=== PATIENT | female | born 1940 | race Caucasian/White ===

== ENCOUNTER 2023-08-12 19:46 | Inpatient (IN) | payer OTHER ==
[~2023-08-12] VITALS: Ht 162.6 cm; Wt 65.8 kg
[2023-08-12] MEDS ORDERED: LEVOFLOXACIN 500 MG/D5W PREMIX 100 ML IV ONE (20:40)
[2023-08-12] MEDS ORDERED: ALBUTEROL 0.083% 2.5 MG/3 ML NEBU INH ONE (20:40)
[2023-08-12] MEDS ORDERED: IPRATROPIUM 0.02% 0.5 MG/2.5 ML NEBU INH ONE (20:40)
[2023-08-12 20:51] VITALS: BP 122/58; PULSE 79; RESP 21; TEMP 97.7; O2SAT 95
[2023-08-12 21:20] VITALS: PULSE 100; RESP 24; RESP 30; O2SAT 99
[2023-08-12 21:22] VITALS: O2SAT 94
[2023-08-12 22:24] LABS: BASOPHILS # (AUTO) 0.1 K/uL (0.00-0.22); BASOPHILS % (AUTO) 0.6 % (0.0-2.0); EOSINOPHILS # (AUTO) 0.1 K/uL (0-0.4); EOSINOPHILS % (AUTO) 0.5 % (0.0-4.0); HEMATOCRIT 35.2 % (36-48); HEMOGLOBIN 11.4 g/dL (12.0-16.0); LYMPHOCYTES # (AUTO) 2.3 K/uL (2.5-16.5); LYMPHOCYTES % (AUTO) 10.5 % (20.5-51.1); MEAN CORPUSCULAR HEMOGLOBIN 30 pg (27-31); MEAN CORPUSCULAR HGB CONC 32 g/dL (33-37); MEAN CORPUSCULAR VOLUME 92.3 fL (80-94); MONOCYTES # (AUTO) 1.6 K/uL (0.8-1.0); MONOCYTES % (AUTO) 7.1 % (1.7-9.3); NEUTROPHILS # (AUTO) 18.1 K/uL (1.8-7.7); NEUTROPHILS % (AUTO) 81.3 % (42.2-75.2); PLATELET COUNT (AUTO) 333 K/uL (140-450); RED BLOOD CELL COUNT(AUTO) 3.82 MIL/uL (4.20-5.40); RED CELL DISTRIBUTION WIDTH 13.7 % (11.6-13.7); WHITE BLOOD COUNT (AUTO) 22.2 K/uL (4.8-10.8)
[2023-08-12 22:37] LABS: ANION GAP 11.5 (8-16); CALCIUM 9.1 mg/dL (8.5-10.1); CHLORIDE 102 mmol/L (98-107); CREATININE 0.7 mg/dL (0.6-1.3); GLUCOSE 113 mg/dL (74-106); POTASSIUM 3.5 mmol/L (3.5-5.1); SODIUM SERUM 141 mmol/L (136-145); UREA NITROGEN, BLOOD 20 mg/dL (7-18)
[2023-08-12 22:38] LABS: INR 1.11 (0.8-1.2); PARTIAL THROMBOPLASTIN TIME 27.8 secs (22-35.6); PROTHROMBIN TIME 11.6 secs (10.8-13.4)
[2023-08-12 22:44] LABS: ALANINE AMINOTRANSFERASE 18 U/L (12-78); ALBUMIN 2.4 g/dL (3.4-5.0); ALKALINE PHOSPHATASE 81 U/L (50-136); ASPARTATE AMINOTRANSFERASE 17 U/L (15-37); BILIRUBIN,DIRECT 0.1 mg/dL (0.0-0.3); TOTAL BILIRUBIN 0.5 mg/dL (0.0-1.0); TOTAL PROTEIN, SERUM 7.2 g/dL (6.4-8.2)
[2023-08-12 22:45] LABS: APPEARANCE,URINE CLEAR (CLEAR); BILIRUBIN,URINE NEGATIVE (NEGATIVE); BLOOD, URINE NEGATIVE (NEGATIVE); COLOR,URINE YELLOW (YELLOW); LEUKOCYTE ESTERASE ,URINE NEGATIVE (NEGATIVE); NITRITE, URINE NEGATIVE (NEGATIVE); PROTEIN,URINE 1+ (NEGATIVE); UGLUCOSE NEGATIVE (NEGATIVE); UROBILINOGEN,URINE 0.2 EU/dL (0.2 - 1)
[2023-08-12 22:46] LABS: LACTIC ACID 0.9 mmol/L (0.4-2.0)
[2023-08-12 22:51] LABS: BACTERIA,URINE 1+ /HPF (None Seen); COARSE GRANULAR CASTS,URINE 0-10 /LPF (None Seen); HYALINE CASTS, URINE 0-10 /LPF (None Seen); MUCUS,URINE 1+ /LPF (None Seen); RBC,URINE 0-5 /HPF (0-5); SQUAMOUS EPITHELIAL CELL,UR 20-50 /LPF (0-3 (FEW)); TRICHOMONAS,URINE None Seen /HPF (None Seen); WBC,URINE 0-5 /HPF (0-5); YEAST,URINE None Seen /HPF (None Seen)
[2023-08-12] MEDS ORDERED: ACETAMINOPHEN EXTRA STRENGTH 500 MG TAB PO ONE (23:40)
[2023-08-13] MEDS ORDERED: LORazepam 2 MG/ML VIAL IVP ONE (00:10)
[2023-08-13] MEDS ORDERED: ONDANSETRON 4 MG/2 ML VIAL IVP ONE (01:20)
[2023-08-13] MEDS ORDERED: ACETAMINOPHEN 325 MG TAB PO PRN (01:20)
[2023-08-13] MEDS ORDERED: CLONIDINE HYDROCHLORIDE 0.1 MG TAB PO PRN (01:20)
[2023-08-13] MEDS ORDERED: LORazepam 0.5 MG TAB PO PRN (01:20)
[2023-08-13] MEDS ORDERED: APIX5TAB PO (01:32)
[2023-08-13] MEDS ORDERED: OMEP40EC23 PO (01:32)
[2023-08-13] MEDS ORDERED: ALPR0.252 PO (01:32)
[2023-08-13] MEDS ORDERED: SOTA80TA PO (01:32)
[2023-08-13] MEDS ORDERED: ENOXAPARIN 40 MG/0.4 ML SYR SUBQ SCH (01:45)
[2023-08-13] MEDS ORDERED: SOTALOL 80 MG TAB PO ONE (04:30)
[2023-08-13] MEDS ORDERED: MORPHINE SULFATE 2 MG/ML SYR IVP PRN (04:40)
[2023-08-13] MEDS ORDERED: HYDROcodone/APAP 5/325 MG 1 TAB TAB PO PRN (04:40)
[2023-08-13] MEDS: NACL 0.9% 1,000 ML IV SCH ×2 (04:44→22:00)
[2023-08-13] MEDS ORDERED: ONDANSETRON 4 MG/2 ML VIAL ONE (04:46)
[2023-08-13] MEDS ORDERED: methylPREDNISolone SS 40 MG in WATER STERILE 1 ML IV SCH (05:00)
[2023-08-13] MEDS ORDERED: PIPERACILLIN/TAZOBACTAM 3.375 GM VIAL IV ONE ×3 (05:03→21:09)
[2023-08-13] MEDS: PIPERACILLIN/TAZOBACTAM 3.375 GM in DEXTROSE 5% 50 ML IV SCH ×3 (05:13→21:26)
[2023-08-13] MEDS: guaiFENesin 20 MG/ML UDC PO PRN (05:22)
[2023-08-13] MEDS ORDERED: guaiFENesin DM 200/20 MG-10 ML 10 ML UDC ONE (05:24)
[2023-08-13] MEDS ORDERED: WATER STERILE 10 ML MC ONE (06:52)
[2023-08-13] MEDS ORDERED: methylPREDNISolone SS 40 MG/ML VIAL ONE (06:52)
[2023-08-13] MEDS: PANTOPRAZOLE 40 MG INJ VIAL IVP SCH ×2 (07:00→08:51)
[2023-08-13] MEDS ORDERED: SOTALOL 80 MG TAB PO SCH (08:12)
[2023-08-13] MEDS: LEVALBUTEROL 0.63 MG/3 ML NEBU INH SCH ×3 (08:19→22:05)
[2023-08-13 08:27] VITALS: PULSE 120; RESP 19; O2SAT 94
[2023-08-13] MEDS: APIXABAN 2.5 MG TAB PO SCH ×2 (08:52→21:22)
[2023-08-13] MEDS ORDERED: ACETYLCYSTEINE 20% (200 MG/ML) 200 MG/ML VIAL INH SCH (09:34)
[2023-08-13 09:40] LABS: BASOPHILS % (AUTO) 0.2 % (0.0-2.0); EOSINOPHILS % (AUTO) 0.1 % (0.0-4.0); HEMATOCRIT 34.8 % (36-48); HEMOGLOBIN 11.2 g/dL (12.0-16.0); LYMPHOCYTES % (AUTO) 4.8 % (20.5-51.1); MEAN CORPUSCULAR HEMOGLOBIN 30 pg (27-31); MEAN CORPUSCULAR HGB CONC 32 g/dL (33-37); MEAN CORPUSCULAR VOLUME 92.9 fL (80-94); MONOCYTES # (AUTO) 0.7 K/uL (0.8-1.0); MONOCYTES % (AUTO) 3.1 % (1.7-9.3); NEUTROPHILS # (AUTO) 19.1 K/uL (1.8-7.7); NEUTROPHILS % (AUTO) 91.8 % (42.2-75.2); PLATELET COUNT (AUTO) 316 K/uL (140-450); RED BLOOD CELL COUNT(AUTO) 3.75 MIL/uL (4.20-5.40); RED CELL DISTRIBUTION WIDTH 13.8 % (11.6-13.7); WHITE BLOOD COUNT (AUTO) 20.9 K/uL (4.8-10.8)
[2023-08-13] MEDS ORDERED: ALPRAZolam 0.25 MG TAB PO SCH (13:00)
[2023-08-13 13:02] VITALS: PULSE 78; RESP 22; O2SAT 94
[2023-08-13] MEDS: ACETYLCYSTEINE 10% (100 MG/ML) 100 MG/ML VIAL INH PRN (13:20)
[2023-08-13] MEDS: methylPREDNISolone SS 40 MG/ML VIAL IVP SCH ×2 (13:20→21:20)
[2023-08-13 13:24] VITALS: PULSE 84; RESP 18; O2SAT 98
[2023-08-13] MEDS ORDERED: CRUSHER, PILL MC ONE (21:09)
[2023-08-13] MEDS: SOTALOL 80 MG TAB PO SCH (21:24)
[2023-08-13] MEDS ORDERED: SIMVASTATIN 40 MG TAB ONE (21:30)
[2023-08-13] MEDS ORDERED: ALPRAZolam 0.5 MG TAB ONE (21:30)
[2023-08-13] MEDS: ALPRAZolam 0.25 MG TAB PO PRN (21:34)
[2023-08-13] MEDS: SIMVASTATIN 20 MG TAB PO SCH (21:37)
[2023-08-13 22:06] VITALS: PULSE 75; RESP 22; O2SAT 95; O2SAT 97
[2023-08-14 01:23] VITALS: PULSE 75; RESP 20; O2SAT 99
[2023-08-14] MEDS: LEVALBUTEROL 0.63 MG/3 ML NEBU INH SCH ×4 (01:23→19:49)
[2023-08-14 01:40] LABS: BASOPHILS % (AUTO) 0.1 % (0.0-2.0); EOSINOPHILS % (AUTO) 0.1 % (0.0-4.0); HEMATOCRIT 29.5 % (36-48); HEMOGLOBIN 9.9 g/dL (12.0-16.0); LYMPHOCYTES % (AUTO) 7.9 % (20.5-51.1); MEAN CORPUSCULAR HEMOGLOBIN 31 pg (27-31); MEAN CORPUSCULAR HGB CONC 34 g/dL (33-37); MONOCYTES # (AUTO) 0.4 K/uL (0.8-1.0); MONOCYTES % (AUTO) 2.8 % (1.7-9.3); NEUTROPHILS # (AUTO) 11.7 K/uL (1.8-7.7); PLATELET COUNT (AUTO) 292 K/uL (140-450); RED BLOOD CELL COUNT(AUTO) 3.18 MIL/uL (4.20-5.40); RED CELL DISTRIBUTION WIDTH 13.9 % (11.6-13.7); WHITE BLOOD COUNT (AUTO) 13.2 K/uL (4.8-10.8)
[2023-08-14 01:59] LABS: ANION GAP 10.1 (8-16); CALCIUM 8.9 mg/dL (8.5-10.1); CARBON DIOXIDE 30.3 mmol/L (21-32); CHLORIDE 103 mmol/L (98-107); CREATININE 0.8 mg/dL (0.6-1.3); GLUCOSE 160 mg/dL (74-106); POTASSIUM 3.4 mmol/L (3.5-5.1); SODIUM SERUM 140 mmol/L (136-145); UREA NITROGEN, BLOOD 15 mg/dL (7-18)
[2023-08-14 02:02] LABS: NEUTROPHILS % (AUTO) 89.1 % (42.2-75.2)
[2023-08-14] MEDS ORDERED: PIPERACILLIN/TAZOBACTAM 3.375 GM VIAL IV ONE ×3 (05:16→21:17)
[2023-08-14] MEDS: PIPERACILLIN/TAZOBACTAM 3.375 GM in DEXTROSE 5% 50 ML IV SCH ×3 (05:39→21:21)
[2023-08-14] MEDS: methylPREDNISolone SS 40 MG/ML VIAL IVP SCH ×3 (05:40→21:21)
[2023-08-14] MEDS ORDERED: POTASSIUM CHLORIDE 10 MEQ TABER PO ONE (06:45)
[2023-08-14 07:54] VITALS: PULSE 74; RESP 20; O2SAT 96
[2023-08-14] MEDS: PANTOPRAZOLE 40 MG INJ VIAL IVP SCH (10:00)
[2023-08-14] MEDS: APIXABAN 2.5 MG TAB PO SCH ×2 (10:02→21:24)
[2023-08-14] MEDS: SOTALOL 80 MG TAB PO SCH ×2 (10:02→21:22)
[2023-08-14 13:43] VITALS: PULSE 82; RESP 20; O2SAT 97
[2023-08-14] MEDS: NACL 0.9% 1,000 ML IV SCH (17:54)
[2023-08-14 19:48] VITALS: PULSE 82; RESP 20; O2SAT 98
[2023-08-14] MEDS: ACETYLCYSTEINE 10% (100 MG/ML) 100 MG/ML VIAL INH PRN (19:50)
[2023-08-14 20:20] VITALS: PULSE 78; RESP 18; O2SAT 99
[2023-08-14 20:29] VITALS: PULSE 78
[2023-08-14] MEDS: SIMVASTATIN 20 MG TAB PO SCH (21:22)
[2023-08-14] MEDS: ALPRAZolam 0.25 MG TAB PO PRN (21:53)
[2023-08-15] VITALS (11 sets, daily range): BP systolic 125–144; BP diastolic 50–77; PULSE 74–140; RESP 18–20; TEMP 97–98.8; O2SAT 96–99
[2023-08-15] MEDS: LEVALBUTEROL 0.63 MG/3 ML NEBU INH SCH ×4 (00:55→19:05)
[2023-08-15] MEDS ORDERED: PIPERACILLIN/TAZOBACTAM 3.375 GM VIAL IV ONE (04:34)
[2023-08-15] MEDS: methylPREDNISolone SS 40 MG/ML VIAL IVP SCH ×3 (05:29→20:56)
[2023-08-15] MEDS: PIPERACILLIN/TAZOBACTAM 3.375 GM in DEXTROSE 5% 50 ML IV SCH ×3 (05:29→20:57)
[2023-08-15 07:17] LABS: BASOPHILS % (AUTO) 0.1 % (0.0-2.0); HEMATOCRIT 32.8 % (36-48); HEMOGLOBIN 10.6 g/dL (12.0-16.0); LYMPHOCYTES % (AUTO) 6.3 % (20.5-51.1); MEAN CORPUSCULAR HEMOGLOBIN 30 pg (27-31); MEAN CORPUSCULAR HGB CONC 32 g/dL (33-37); MEAN CORPUSCULAR VOLUME 93.7 fL (80-94); MONOCYTES # (AUTO) 0.6 K/uL (0.8-1.0); MONOCYTES % (AUTO) 3.5 % (1.7-9.3); NEUTROPHILS # (AUTO) 14.9 K/uL (1.8-7.7); NEUTROPHILS % (AUTO) 90.1 % (42.2-75.2); PLATELET COUNT (AUTO) 383 K/uL (140-450); RED CELL DISTRIBUTION WIDTH 13.7 % (11.6-13.7); WHITE BLOOD COUNT (AUTO) 16.5 K/uL (4.8-10.8)
[2023-08-15 07:44] LABS: ANION GAP 12.5 (8-16); CALCIUM 8.9 mg/dL (8.5-10.1); CARBON DIOXIDE 30.4 mmol/L (21-32); CHLORIDE 106 mmol/L (98-107); CREATININE 0.9 mg/dL (0.6-1.3); GLUCOSE 147 mg/dL (74-106); POTASSIUM 3.9 mmol/L (3.5-5.1); SODIUM SERUM 145 mmol/L (136-145); UREA NITROGEN, BLOOD 20 mg/dL (7-18)
[2023-08-15] MEDS: LACTOBACILLUS RHAMNOSUS GG 1 EACH CAP PO SCH (09:05)
[2023-08-15] MEDS: PANTOPRAZOLE 40 MG INJ VIAL IVP SCH (09:05)
[2023-08-15] MEDS: APIXABAN 2.5 MG TAB PO SCH ×2 (09:06→20:56)
[2023-08-15] MEDS: SOTALOL 80 MG TAB PO SCH ×2 (09:07→20:56)
[2023-08-15] MEDS: guaiFENesin 20 MG/ML UDC PO PRN (13:21)
[2023-08-15] MEDS: NACL 0.9% 1,000 ML IV SCH (13:25)
[2023-08-15] MEDS: ACETYLCYSTEINE 10% (100 MG/ML) 100 MG/ML VIAL INH PRN (19:06)
[2023-08-15] MEDS: ALPRAZolam 0.25 MG TAB PO PRN (20:57)
[2023-08-15] MEDS: SIMVASTATIN 20 MG TAB PO SCH (21:05)
[2023-08-16] VITALS (16 sets, daily range): BP systolic 124–142; BP diastolic 49–68; PULSE 71–107; RESP 16–20; TEMP 97.2–98.6; O2SAT 93–100
[2023-08-16] MEDS: LEVALBUTEROL 0.63 MG/3 ML NEBU INH SCH ×6 (01:16→23:00)
[2023-08-16] MEDS: PIPERACILLIN/TAZOBACTAM 3.375 GM in DEXTROSE 5% 50 ML IV SCH (05:14)
[2023-08-16 06:28] LABS: BASOPHILS % (AUTO) 0.3 % (0.0-2.0); EOSINOPHILS # (AUTO) 0.1 K/uL (0-0.4); HEMATOCRIT 30.7 % (36-48); HEMOGLOBIN 10.3 g/dL (12.0-16.0); LYMPHOCYTES # (AUTO) 0.9 K/uL (2.5-16.5); LYMPHOCYTES % (AUTO) 8.6 % (20.5-51.1); MEAN CORPUSCULAR HEMOGLOBIN 31 pg (27-31); MEAN CORPUSCULAR HGB CONC 33 g/dL (33-37); MEAN CORPUSCULAR VOLUME 93.6 fL (80-94); MONOCYTES # (AUTO) 0.7 K/uL (0.8-1.0); MONOCYTES % (AUTO) 6.2 % (1.7-9.3); NEUTROPHILS % (AUTO) 83.9 % (42.2-75.2); PLATELET COUNT (AUTO) 313 K/uL (140-450); RED BLOOD CELL COUNT(AUTO) 3.28 MIL/uL (4.20-5.40); WHITE BLOOD COUNT (AUTO) 10.8 K/uL (4.8-10.8)
[2023-08-16 06:41] LABS: ANION GAP 11.3 (8-16); CALCIUM 8.9 mg/dL (8.5-10.1); CARBON DIOXIDE 31.8 mmol/L (21-32); CHLORIDE 105 mmol/L (98-107); CREATININE 0.7 mg/dL (0.6-1.3); GLUCOSE 130 mg/dL (74-106); POTASSIUM 4.1 mmol/L (3.5-5.1); SODIUM SERUM 144 mmol/L (136-145); UREA NITROGEN, BLOOD 20 mg/dL (7-18)
[2023-08-16] MEDS: PANTOPRAZOLE 40 MG INJ VIAL IVP SCH (08:14)
[2023-08-16] MEDS: AMOXIL/CLAVULANATE 875/125 MG 1 TAB PO SCH ×2 (08:14→20:44)
[2023-08-16] MEDS: predniSONE 20 MG TAB PO SCH (08:15)
[2023-08-16] MEDS: APIXABAN 2.5 MG TAB PO SCH ×2 (08:15→20:43)
[2023-08-16] MEDS: SOTALOL 80 MG TAB PO SCH ×2 (08:16→20:38)
[2023-08-16] MEDS: LACTOBACILLUS RHAMNOSUS GG 1 EACH CAP PO SCH (08:20)
[2023-08-16] MEDS: NACL 0.9% 1,000 ML IV SCH (08:21)
[2023-08-16] MEDS ORDERED: levoFLOXacin 750 MG TAB PO SCH (09:00)
[2023-08-16] MEDS ORDERED: FUROSEMIDE 20 MG/2 ML VIAL IVP SCH (09:13)
[2023-08-16] MEDS: IPRATROPIUM 0.02% 0.5 MG/2.5 ML NEBU INH SCH ×3 (16:39→23:02)
[2023-08-16] MEDS: SIMVASTATIN 20 MG TAB PO SCH (20:39)
[2023-08-16] MEDS: ALPRAZolam 0.25 MG TAB PO PRN (20:39)
[2023-08-17] VITALS (8 sets, daily range): BP systolic 133–147; BP diastolic 45–60; PULSE 74–90; RESP 16–18; TEMP 97.4–98.7; O2SAT 93–97
[2023-08-17] MEDS: IPRATROPIUM 0.02% 0.5 MG/2.5 ML NEBU INH SCH ×3 (02:53→11:16)
[2023-08-17] MEDS: LEVALBUTEROL 0.63 MG/3 ML NEBU INH SCH ×3 (02:53→11:17)
[2023-08-17] MEDS: NACL 0.9% 1,000 ML IV SCH (05:42)
[2023-08-17] MEDS ORDERED: LEVA0.6333 INH (07:14)
[2023-08-17] MEDS ORDERED: ATRN INH (07:14)
[2023-08-17] MEDS ORDERED: AUG875 PO (07:14)
[2023-08-17] MEDS ORDERED: LACT10CA PO (07:14)
[2023-08-17] MEDS ORDERED: PRED20TA5 PO (07:14)
[2023-08-17] MEDS ORDERED: ROB PO (07:14)
[2023-08-17] MEDS ORDERED: NEBU-113 MC (07:15)
[2023-08-17] MEDS: AMOXIL/CLAVULANATE 875/125 MG 1 TAB PO SCH (08:37)
[2023-08-17] MEDS: PANTOPRAZOLE 40 MG INJ VIAL IVP SCH (08:37)
[2023-08-17] MEDS: SOTALOL 80 MG TAB PO SCH (08:38)
[2023-08-17] MEDS: APIXABAN 2.5 MG TAB PO SCH (08:39)
[2023-08-17] MEDS: predniSONE 20 MG TAB PO SCH (08:39)
[2023-08-17] MEDS: LACTOBACILLUS RHAMNOSUS GG 1 EACH CAP PO SCH (08:39)
[2023-08-17] MEDS ORDERED: FURO-570 PO (09:25)
[2023-08-17] MEDS ORDERED: VANC125C5 PO (10:03)
== END 2023-08-17 13:00 | disposition home health service (06) | DRG 871 ==
LOC: MED 19:46 → MTU 08-13 01:27
PROVIDERS: ADMIT Internal Medicine; ATTEND Internal Medicine
DX: A41.9 Sepsis, unspecified organism (principal); J15.69 Pneumonia due to other Gram-negative bacteria; J96.01 Acute respiratory failure with hypoxia; J44.0 Chronic obstructive pulmonary disease with (acute) lower respiratory infection; I48.91 Unspecified atrial fibrillation; I10 Essential (primary) hypertension; Z95.0 Presence of cardiac pacemaker; Z79.01 Long term (current) use of anticoagulants; Z79.899 Other long term (current) drug therapy
CPT/HCPCS: 36415; 71045; 80048; 80076; 81001; 83605; 83735; 83880; 84484; 85025; 85610; 85730; 87040; 87081; 87086; 93005; 94640; 96374; 96375; 97112; 97116; 97163-GP; 97530; 99285; C9113; J1650; J1940; J1956; J2060; J2405; J2543; J2920; J7060; J7512; J7613; J7614; J7644; Q0092